=== PATIENT | female | born 1930 | race Caucasian/White ===

== ENCOUNTER → 2017-07-06 | Outpatient (REF) | DX: R73.9 Hyperglycemia, unspecified (principal) ==

== ENCOUNTER → 2017-07-07 | Outpatient (REF) ==
[2017-07-07 10:37] LABS: HEMATOCRIT 45.8 % (36.0-47.0); MEAN CORPUSCULAR HEMOGLOBIN 29.6 pg (27.0-33.0); MEAN CORPUSCULAR HGB CONC 32.8 g/dl (32.0-36.5); MEAN CORPUSCULAR VOLUME 90.3 fl (80.0-96.0); PLATELET COUNT, AUTOMATED 309 10^3/uL (150-450); RED BLOOD COUNT 5.07 10^6/uL (4.00-5.40); RED CELL DISTRIBUTION WIDTH 12.2 % (11.5-14.5); WHITE BLOOD COUNT 5.5 10^3/uL (4.0-10.0)
[2017-07-07 11:08] LABS: ANION GAP 7 MEQ/L (8-16); BLOOD UREA NITROGEN 19 MG/DL (7-18); CALCIUM LEVEL 9.4 MG/DL (8.8-10.2); CARBON DIOXIDE LEVEL 34 MEQ/L (21-32); CHLORIDE LEVEL 94 MEQ/L (98-107); CREATININE FOR GFR 0.81 MG/DL (0.55-1.30); GLOMERULAR FILTRATION RATE > 60.0 (>32); GLUCOSE, FASTING 369 MG/DL (70-100); POTASSIUM SERUM 4.5 MEQ/L (3.5-5.1); SODIUM LEVEL 135 MEQ/L (136-145)
== END ==
DX: I63.9 Cerebral infarction, unspecified (principal)

== ENCOUNTER 2018-02-03 15:14 | Inpatient (IN) | payer MEDICARE, MEDICAID, OTHER ==
[2018-02-03 16:04] LABS: BEDSIDE GLUCOSE 205 MG/DL (83-110)
[2018-02-03 16:17] LABS: BASO % 0.6 % (0.0-1.0); EOS # 0.2 10^3/uL (0.0-0.50); EOS % 2.2 % (0.0-3.0); HEMATOCRIT 38.9 % (36.0-47.0); HEMOGLOBIN 12.9 g/dl (12.0-15.5); IMMATURE GRANULOCYTE % 0.6 % (0-3.0); LYMPH # 0.9 10^3/uL (1.5-4.5); LYMPH % 13.2 % (24.0-44.0); MEAN CORPUSCULAR HEMOGLOBIN 30.6 pg (27.0-33.0); MEAN CORPUSCULAR HGB CONC 33.2 g/dl (32.0-36.5); MEAN CORPUSCULAR VOLUME 92.4 fl (80.0-96.0); MONO # 0.8 10^3/uL (0.0-0.8); MONO % 11.1 % (0.0-5.0); NEUTROPHILS # 4.9 10^3/uL (1.8-7.7); NEUTROPHILS % 72.3 % (36.0-66.0); PLATELET COUNT, AUTOMATED 254 10^3/uL (150-450); RED BLOOD COUNT 4.21 10^6/uL (4.00-5.40); RED CELL DISTRIBUTION WIDTH 12.1 % (11.5-14.5); WHITE BLOOD COUNT 6.8 10^3/uL (4.0-10.0)
[2018-02-03 16:42] LABS: ANION GAP 7 MEQ/L (8-16); BLOOD UREA NITROGEN 20 MG/DL (7-18); CALCIUM LEVEL 8.7 MG/DL (8.8-10.2); CARBON DIOXIDE LEVEL 32 MEQ/L (21-32); CHLORIDE LEVEL 96 MEQ/L (98-107); CPK CREATINE PHOSPHOKINASE 73 U/L (26-192); CREATININE FOR GFR 0.78 MG/DL (0.55-1.30); GLOMERULAR FILTRATION RATE > 60.0 (>32); GLUCOSE, FASTING 191 MG/DL (70-100); MB/CK RELATIVE INDEX 2.33 (< OR =4); POTASSIUM SERUM 4.9 MEQ/L (3.5-5.1); SODIUM LEVEL 135 MEQ/L (136-145); TROPONIN I < 0.02 NG/ML (< 0.10)
[2018-02-03 16:48] LABS: INR 1.05; PROTHROMBIN TIME 13.9 SECONDS (12.1-14.4)
[2018-02-03 16:49] LABS: PARTIAL THROMBOPLASTIN TIME 23.6 SECONDS (25.4-37.6)
[2018-02-03] MEDS: NS 1,000 ML IV (20:20)
[2018-02-03] MEDS ORDERED: DEXTROSE 50% 50 ML SYRINGE IV (20:30)
[2018-02-03] MEDS ORDERED: ACETAMINOPHEN 325 MG TAB PO (20:30)
[2018-02-03] MEDS ORDERED: GLUCAGON FOR INJ 1 MG VIAL (J1610) SC (20:30)
[2018-02-03] MEDS ORDERED: MOM 30ML SUSPENSION UDC PO (20:30)
[2018-02-03] MEDS ORDERED: BISACODYL 10 MG SUPP PR (20:30)
[2018-02-03] MEDS ORDERED: ANUSOL HC 25MG SUPP PR (20:30)
[2018-02-03] MEDS ORDERED: GLUCOSE 4 GM CHEW TABLET PO (20:30)
[2018-02-03 22:50] LABS: CPK CREATINE PHOSPHOKINASE 80 U/L (26-192); MB/CK RELATIVE INDEX 2.25 (< OR =4); TROPONIN I < 0.02 NG/ML (< 0.10)
[2018-02-03 23:09] LABS: BEDSIDE GLUCOSE 313 MG/DL (83-110)
[2018-02-03] MEDS: SIMVASTATIN 20 MG TAB PO (23:17)
[2018-02-03] MEDS: oxyBUTYnin 5 MG TAB PO (23:17)
[2018-02-03] MEDS: LEVEMIR (INSULIN DETEMIR) 1 UNITS/0.01ML SC (23:18)
[2018-02-03] MEDS: HumaLOG INSULIN (NovoLOG) PER UNIT SC (23:18)
[2018-02-03] MEDS: HEPARIN SOD (PORCINE) 5000 UNITS/ML VIAL SQ (23:18)
[2018-02-04] MEDS: amLODIPine 10 MG TAB PO ×2 (02:02→08:43)
[2018-02-04 05:36] LABS: HEMATOCRIT 37.2 % (36.0-47.0); HEMOGLOBIN 12.4 g/dl (12.0-15.5); MEAN CORPUSCULAR HEMOGLOBIN 30.2 pg (27.0-33.0); MEAN CORPUSCULAR HGB CONC 33.3 g/dl (32.0-36.5); MEAN CORPUSCULAR VOLUME 90.5 fl (80.0-96.0); PLATELET COUNT, AUTOMATED 242 10^3/uL (150-450); RED BLOOD COUNT 4.11 10^6/uL (4.00-5.40); WHITE BLOOD COUNT 6.6 10^3/uL (4.0-10.0)
[2018-02-04 06:08] LABS: ANION GAP 7 MEQ/L (8-16); BLOOD UREA NITROGEN 18 MG/DL (7-18); CALCIUM LEVEL 8.4 MG/DL (8.8-10.2); CARBON DIOXIDE LEVEL 31 MEQ/L (21-32); CHLORIDE LEVEL 98 MEQ/L (98-107); CPK CREATINE PHOSPHOKINASE 71 U/L (26-192); CREATININE FOR GFR 0.54 MG/DL (0.55-1.30); GLOMERULAR FILTRATION RATE > 60.0 (>32); GLUCOSE, FASTING 119 MG/DL (70-100); MAGNESIUM LEVEL 1.4 MG/DL (1.8-2.4); MB/CK RELATIVE INDEX 2.68 (< OR =4); POTASSIUM SERUM 4.1 MEQ/L (3.5-5.1); SODIUM LEVEL 136 MEQ/L (136-145); TROPONIN I 0.02 NG/ML (< 0.10)
[2018-02-04] MEDS: HumaLOG INSULIN (NovoLOG) PER UNIT SC ×4 (07:30→20:43)
[2018-02-04] MEDS: CLOPIDOGREL 75 MG TAB PO (08:43)
[2018-02-04] MEDS: oxyBUTYnin 5 MG TAB PO ×3 (08:43→20:25)
[2018-02-04] MEDS: DOCUSATE SODIUM 100 MG CAP PO (08:44)
[2018-02-04] MEDS: NS 1,000 ML IV ×2 (08:44→22:00)
[2018-02-04] MEDS: SENOKOT S TAB PO ×2 (08:44→20:25)
[2018-02-04] MEDS: HEPARIN SOD (PORCINE) 5000 UNITS/ML VIAL SQ ×2 (08:44→20:26)
[2018-02-04] MEDS: MAGNESIUM OXIDE 400 MG TAB (MAG-OX) PO (08:44)
[2018-02-04] MEDS: ASPIRIN 81 MG ENTERIC TAB PO (08:44)
[2018-02-04] MEDS: MULTIVITAMINS/MINERALS THERAP 1 TAB PO (08:44)
[2018-02-04 10:49] LABS: CPK CREATINE PHOSPHOKINASE 77 U/L (26-192); MB/CK RELATIVE INDEX 2.99 (< OR =4); TROPONIN I < 0.02 NG/ML (< 0.10)
[2018-02-04 11:41] LABS: BEDSIDE GLUCOSE 46 MG/DL (83-110)
[2018-02-04 12:08] LABS: BEDSIDE GLUCOSE 49 MG/DL (83-110)
[2018-02-04 13:02] LABS: BEDSIDE GLUCOSE 101 MG/DL (83-110)
[2018-02-04 16:44] LABS: BEDSIDE GLUCOSE 177 MG/DL (83-110)
[2018-02-04] MEDS: SIMVASTATIN 20 MG TAB PO (20:25)
[2018-02-04] MEDS: LEVEMIR (INSULIN DETEMIR) 1 UNITS/0.01ML SC (20:42)
[2018-02-04 20:43] LABS: BEDSIDE GLUCOSE 352 MG/DL (83-110)
[2018-02-05 06:30] LABS: HEMATOCRIT 34.8 % (36.0-47.0); HEMOGLOBIN 11.4 g/dl (12.0-15.5); MEAN CORPUSCULAR HEMOGLOBIN 30.5 pg (27.0-33.0); MEAN CORPUSCULAR HGB CONC 32.8 g/dl (32.0-36.5); PLATELET COUNT, AUTOMATED 269 10^3/uL (150-450); RED BLOOD COUNT 3.74 10^6/uL (4.00-5.40); RED CELL DISTRIBUTION WIDTH 12.3 % (11.5-14.5)
[2018-02-05 06:52] LABS: ANION GAP 8 MEQ/L (8-16); BLOOD UREA NITROGEN 29 MG/DL (7-18); CALCIUM LEVEL 8.5 MG/DL (8.8-10.2); CARBON DIOXIDE LEVEL 28 MEQ/L (21-32); CHLORIDE LEVEL 102 MEQ/L (98-107); GLOMERULAR FILTRATION RATE > 60.0 (>32); GLUCOSE, FASTING 222 MG/DL (70-100); MAGNESIUM LEVEL 1.7 MG/DL (1.8-2.4); POTASSIUM SERUM 5.1 MEQ/L (3.5-5.1); SODIUM LEVEL 138 MEQ/L (136-145)
[2018-02-05] MEDS: ASPIRIN 81 MG ENTERIC TAB PO (10:49)
[2018-02-05] MEDS: MAGNESIUM OXIDE 400 MG TAB (MAG-OX) PO (10:49)
[2018-02-05] MEDS: HumaLOG INSULIN (NovoLOG) PER UNIT SC ×2 (10:49→12:00)
[2018-02-05] MEDS: HEPARIN SOD (PORCINE) 5000 UNITS/ML VIAL SQ (10:49)
[2018-02-05] MEDS: CLOPIDOGREL 75 MG TAB PO (10:49)
[2018-02-05] MEDS: MULTIVITAMINS/MINERALS THERAP 1 TAB PO (10:50)
[2018-02-05] MEDS: DOCUSATE SODIUM 100 MG CAP PO (10:50)
[2018-02-05] MEDS: SENOKOT S TAB PO (10:50)
[2018-02-05] MEDS: oxyBUTYnin 5 MG TAB PO (10:50)
[2018-02-05 11:40] LABS: BEDSIDE GLUCOSE 225 MG/DL (83-110)
== END 2018-02-05 12:22 | DRG 312 ==
LOC: M ED 15:14 → M ED INP 21:37 → M MSPAV 22:56
DX: R55 Syncope and collapse (principal); Z66 Do not resuscitate; I10 Essential (primary) hypertension; K59.00 Constipation, unspecified; R53.1 Weakness; F03.90 Unspecified dementia, unspecified severity, without behavioral disturbance, psychotic disturbance, mood disturbance, and anxiety; N32.81 Overactive bladder; R32 Unspecified urinary incontinence; E78.5 Hyperlipidemia, unspecified; E11.649 Type 2 diabetes mellitus with hypoglycemia without coma; E78.00 Pure hypercholesterolemia, unspecified; Z86.73 Personal history of transient ischemic attack (TIA), and cerebral infarction without residual deficits; Z98.62 Peripheral vascular angioplasty status; Z87.891 Personal history of nicotine dependence; Z79.82 Long term (current) use of aspirin; Z79.4 Long term (current) use of insulin; Z95.0 Presence of cardiac pacemaker

== ENCOUNTER → 2018-02-06 | Outpatient (REF) ==
[2018-02-06 07:39] LABS: ANION GAP 5 MEQ/L (8-16); BLOOD UREA NITROGEN 21 MG/DL (7-18); CALCIUM LEVEL 8.9 MG/DL (8.8-10.2); CARBON DIOXIDE LEVEL 35 MEQ/L (21-32); CHLORIDE LEVEL 97 MEQ/L (98-107); CREATININE FOR GFR 0.56 MG/DL (0.55-1.30); GLOMERULAR FILTRATION RATE > 60.0 (>32); GLUCOSE, FASTING 108 MG/DL (70-100); POTASSIUM SERUM 4.2 MEQ/L (3.5-5.1); SODIUM LEVEL 137 MEQ/L (136-145)
== END ==
LOC: SKLAB7 07:00
DX: E11.9 Type 2 diabetes mellitus without complications (principal)

== ENCOUNTER → 2018-02-09 | Outpatient (REF) | payer MEDICARE, MEDICAID ==
[2018-02-09 07:11] LABS: ESTIMATED AVERAGE GLUCOSE 157 MG/DL (60-110); HEMOGLOBIN A1c 7.1 %
== END ==
LOC: SKLAB7 07:00
DX: E11.9 Type 2 diabetes mellitus without complications (principal)
CPT/HCPCS: 83036

== ENCOUNTER → 2018-04-16 | Outpatient (REF) | payer MEDICARE, MEDICAID, OTHER ==
[~2018-04-16] MED LIST: ACET1TAB55 PO; AMLO5TAB6 PO; ANUS25SU PR; ASPI81TA24 PO; CARV25TA PO; CLOP75TA2 PO; COLA100C5 PO; DULC10SU2 PR; ENEMENE6 PR; FEVE650S3 PR; INSUHUMDS SC; LANTINJ4 SC; MAGN400T PO; MILK120011 PO; OXYB5TAB10 PO; SIMV20TA2 PO; VITMTA PO
[2018-04-16 14:08] LABS: BASO # 0.1 10^3/uL (0.0-0.2); BASO % 1.3 % (0.0-1.0); EOS # 0.5 10^3/uL (0.0-0.50); EOS % 7.5 % (0.0-3.0); HEMATOCRIT 38.7 % (36.0-47.0); HEMOGLOBIN 12.2 g/dl (12.0-15.5); LYMPH # 1.2 10^3/uL (1.5-4.5); LYMPH % 16.8 % (24.0-44.0); MEAN CORPUSCULAR HEMOGLOBIN 29.6 pg (27.0-33.0); MEAN CORPUSCULAR HGB CONC 31.5 g/dl (32.0-36.5); MEAN CORPUSCULAR VOLUME 93.9 fl (80.0-96.0); MONO # 0.7 10^3/uL (0.0-0.8); MONO % 9.7 % (0.0-5.0); NEUTROPHILS # 4.6 10^3/uL (1.8-7.7); NEUTROPHILS % 64.4 % (36.0-66.0); PLATELET COUNT, AUTOMATED 314 10^3/uL (150-450); RED BLOOD COUNT 4.12 10^6/uL (4.00-5.40); WHITE BLOOD COUNT 7.1 10^3/uL (4.0-10.0)
[2018-04-16 14:12] LABS: ALBUMIN 3.2 GM/DL (3.2-5.2); ALT/SGPT 15 U/L (12-78); BILIRUBIN,TOTAL 1.1 MG/DL (0.2-1.0); BLOOD UREA NITROGEN 27 MG/DL (7-18); CALCIUM LEVEL 8.9 MG/DL (8.8-10.2); CARBON DIOXIDE LEVEL 34 MEQ/L (21-32); CHLORIDE LEVEL 102 MEQ/L (98-107); CREATININE FOR GFR 0.52 MG/DL (0.55-1.30); GLOMERULAR FILTRATION RATE > 60.0 (>32); GLUCOSE, FASTING 105 MG/DL (70-100); POTASSIUM SERUM 4.5 MEQ/L (3.5-5.1); RHEUMATOID FACTOR QUANT < 10.0 IU/ML (<15.0); SODIUM LEVEL 140 MEQ/L (136-145); TOTAL PROTEIN 5.9 GM/DL (6.4-8.2)
[2018-04-16 14:40] LABS: ERYTHROCYTE SEDIMENTATION RATE 6 mm/hr (0-42)
[2018-04-19 14:16] LABS: ANTINUCLEAR ANTIBODIES DIRECT Negative (Negative); LEVETIRACETAM (KEPPRA) 44.2 ug/mL (10.0-40.0)
== END ==
LOC: M LABNEURO 13:13
PROVIDERS: ATTEND Psychiatry & Neurology Neurology
DX: R56.9 Unspecified convulsions (principal)